=== PATIENT | female | born 1985 | race Hispanic/Latino ===

== ENCOUNTER 2024-11-01 19:33 | Emergency (ER) | payer OTHER, BC ==
[~2024-11-01] VITALS: Ht 165.1 cm; Wt 75.0 kg
[~2024-11-01 19:33] MED LIST: LORTAB 5 OR
[2024-11-01] MEDS ORDERED: IBUPROFEN 600 MG/TAB PO ONE (19:40)
[2024-11-01 20:03] VITALS: BP 130/96
[2024-11-01 20:37] VITALS: BP 130/96
== END 2024-11-01 20:37 | disposition home or self-care (01) | DRG 563 ==
LOC: ED 19:33
DX: S63.501A Unspecified sprain of right wrist, initial encounter (principal); V43.52XA Car driver injured in collision with other type car in traffic accident, initial encounter